=== PATIENT | male | born 1955 | race Caucasian/White ===

== ENCOUNTER 2017-06-03 06:53 | Day surgery (SDC) | payer MEDICAID ==
[~2017-06-03] VITALS: Ht 170.2 cm; Wt 80.7 kg
[~2017-06-03 06:53] MED LIST: PEPTO BISMOL
[2017-06-03] MEDS ORDERED: LIDOCAINE 2% 100 MG/5 ML UJET TP ONE (07:29)
== END 2017-06-03 10:35 | disposition home or self-care (01) ==
LOC: MDS 06:53 → MMU 06:53 → MDS 10:35
PROVIDERS: ATTEND Internal Medicine Gastroenterology
DX: Z12.11 Encounter for screening for malignant neoplasm of colon (principal)

== ENCOUNTER 2022-08-04 14:53 | Emergency (ER) | payer OTHER, MEDICAID ==
[~2022-08-04] VITALS: Ht 170.2 cm; Wt 78.9 kg
[2022-08-04 15:20] VITALS: BP 142/74
[2022-08-04 16:24] LABS: APPEARANCE,URINE CLEAR (CLEAR); BILIRUBIN,URINE NEGATIVE (NEGATIVE); BLOOD, URINE NEGATIVE (NEGATIVE); COLOR,URINE YELLOW (YELLOW); LEUKOCYTE ESTERASE ,URINE NEGATIVE (NEGATIVE); NITRITE, URINE NEGATIVE (NEGATIVE); PH,URINE 6.5 (5.0-9.0); UGLUCOSE NEGATIVE (NEGATIVE)
--- NOTE | 2022-08-04 16:30 | NUR ---
67M PRESENTS TO ED WITH COMPLAINT OF URINARY RETENTION AND URGENCY X2DAYS. PT REPORTS RECEIVING OXYBUTYNIN A MONTH AGO FOR URINARY FREQUENCY, LAST TIME USED WAS 3 DAYS AGO. PT REPORTS MILD URINARY BURNING, RATES PAIN 2/10, DENIES ABD PAIN, FEVERS, CHILLS OR TAKING MEDS TODAY.
--- NOTE | 2022-08-04 18:05 | NUR ---
DR TOSCANO AT BEDSIDE FOR ULTRASOUND OF BLADDER.
--- NOTE | 2022-08-04 18:35 | NUR ---
# 16 FR Islas catheter with 10 ml utilizing sterile technique. Immediate return of 950 ml clear yellow urine noted. Bedside drainage bag placed below level of bladder. Pt tolerated procedure well.
--- NOTE | 2022-08-04 19:10 | NUR ---
CHEUNG CATHETER CONVERTED TO LEG BAG BEFORE D/C PER DR. TOSCANO'S INSTRUCTION.
--- NOTE | 2022-08-04 19:15 | NUR ---
Patient discharged with v/s stable. Written and verbal after care instructions acute urinary retention given and explained. Patient verbalized understanding. Ambulatory with steady gait. All questions addressed prior to discharge. Advised to follow up with PMD.
[2022-08-05] MEDS ORDERED: CIPR500T4 PO (21:12)
== END 2022-08-04 19:15 | disposition home or self-care (01) ==
LOC: MED 14:53
DX: R33.9 Retention of urine, unspecified (principal); Z88.0 Allergy status to penicillin; Z79.899 Other long term (current) drug therapy
CPT/HCPCS: 51702; 81003; 99284

== ENCOUNTER 2022-08-05 15:44 | Emergency (ER) | payer OTHER, MEDICAID ==
[~2022-08-05] VITALS: Ht 170.2 cm; Wt 79.4 kg
[2022-08-05 17:03] VITALS: BP 112/76
[2022-08-05 19:01] LABS: APPEARANCE,URINE SL CLOUDY (CLEAR); BILIRUBIN,URINE 1+ (NEGATIVE); BLOOD, URINE 3+ (NEGATIVE); COLOR,URINE ORANGE (YELLOW); LEUKOCYTE ESTERASE ,URINE TRACE (NEGATIVE); NITRITE, URINE POSITIVE (NEGATIVE); UGLUCOSE 1+ (NEGATIVE)
[2022-08-05 19:08] LABS: BASOPHILS % (AUTO) 0.5 % (0.0-2.0); EOSINOPHILS % (AUTO) 0.4 % (0.0-4.0); HEMATOCRIT 41.7 % (36-52); HEMOGLOBIN 14.2 g/dL (12.0-18.0); LYMPHOCYTES # (AUTO) 1.8 K/uL (2.0-11.5); LYMPHOCYTES % (AUTO) 22.3 % (20.5-51.1); MEAN CORPUSCULAR HEMOGLOBIN 33 pg (27-31); MEAN CORPUSCULAR HGB CONC 34 g/dL (33-37); MEAN CORPUSCULAR VOLUME 95.2 fL (80-94); MONOCYTES # (AUTO) 0.7 K/uL (0.8-1.0); MONOCYTES % (AUTO) 8.2 % (1.7-9.3); NEUTROPHILS # (AUTO) 5.5 K/uL (1.8-7.7); NEUTROPHILS % (AUTO) 68.6 % (42.2-75.2); PLATELET COUNT (AUTO) 274 K/uL (140-450); RED BLOOD CELL COUNT(AUTO) 4.38 MIL/uL (4.20-6.10); RED CELL DISTRIBUTION WIDTH 12.8 % (11.6-13.7)
[2022-08-05 19:33] LABS: RBC,URINE 20-50 /HPF (0-5)
[2022-08-05 19:47] LABS: PROTHROMBIN TIME 10.4 secs (10.8-13.4)
[2022-08-05 19:52] LABS: ALBUMIN 3.7 g/dL (3.4-5.0); ANION GAP 11.6 (8-16); CARBON DIOXIDE 28.7 mmol/L (21-32); CREATININE 0.9 mg/dL (0.6-1.3); POTASSIUM 4.3 mmol/L (3.5-5.1); TOTAL BILIRUBIN 0.5 mg/dL (0.0-1.0)
[2022-08-05] MEDS ORDERED: CIPR500T4 PO (21:12)
== END 2022-08-05 21:28 | disposition home or self-care (01) ==
LOC: MED 15:44
DX: N39.0 Urinary tract infection, site not specified (principal); E80.4 Gilbert syndrome; R31.9 Hematuria, unspecified; R80.9 Proteinuria, unspecified; Z88.0 Allergy status to penicillin; Z79.899 Other long term (current) drug therapy; Z96.0 Presence of urogenital implants
CPT/HCPCS: 36415; 80053; 81001; 85025; 85610; 85730; 87086; 99283

== ENCOUNTER 2022-08-14 22:47 | Emergency (ER) | payer OTHER, MEDICAID ==
[~2022-08-14] VITALS: Ht 170.2 cm; Wt 78.0 kg
[~2022-08-14 22:47] MED LIST changes: +CIPR500T4 PO
[2022-08-14 23:46] VITALS: BP 120/81
--- NOTE | 2022-08-14 23:53 | NUR ---
PT TO LOBBY
[2022-08-15] MEDS ORDERED: RECT1DEV RC (01:07)
[2022-08-15] MEDS ORDERED: DOCU-299 PO (01:07)
[2022-08-15 01:18] VITALS: BP 120/81
--- NOTE | 2022-08-15 01:18 | NUR ---
Patient discharged with v/s stable. Written and verbal after care instructions given and explained. Patient alert, oriented and verbalized understanding of instructions. Ambulatory with steady gait. All questions addressed prior to discharge. ID band removed. Patient advised to follow up with PMD. Rx of Colace and Recticare given. Patient educated on indication of medication including possible reaction and side effects. Opportunity to ask questions provided and answered.
== END 2022-08-15 01:18 | disposition home or self-care (01) ==
LOC: MED 22:47
DX: K64.9 Unspecified hemorrhoids (principal); K60.2 Anal fissure, unspecified; Z88.0 Allergy status to penicillin; Z79.899 Other long term (current) drug therapy
CPT/HCPCS: 99282

== ENCOUNTER 2022-10-06 01:15 | Emergency (ER) | payer MEDICARE, MEDICAID ==
[~2022-10-06 01:15] MED LIST changes: +DOCU-299 PO; +RECT1DEV RC
--- NOTE | 2022-10-06 01:38 | NUR ---
PATIENT CALL TO BE TRIAGE, HE CHANGE HIS MIND, HE DOESNT WANT TO BE SEEN BY ERMD. PATIENT LEFT WITHOUT BEING SEEN BY DR. TREADWELL. NO FURTHER CARE PROVIDED FOR PATIENT.
== END 2022-10-06 01:38 | disposition left against medical advice (07) ==
LOC: MED 01:15
DX: T85.618A Breakdown (mechanical) of other specified internal prosthetic devices, implants and grafts, initial encounter (principal); Z53.21 Procedure and treatment not carried out due to patient leaving prior to being seen by health care provider; Y84.8 Other medical procedures as the cause of abnormal reaction of the patient, or of later complication, without mention of misadventure at the time of the procedure; Y92.89 Other specified places as the place of occurrence of the external cause